=== PATIENT | female | born 1960 | race Caucasian/White ===

== ENCOUNTER 2020-01-16 06:23 | Day surgery (SDC) | payer BC ==
[~2020-01-16 06:23] MED LIST: CYCLOPENTOLATE 1% OPHTH DROPS 2 ML ONE; KETOROLAC 0.45% OPHTH DROPS ONE; PHENYLEPHRINE 2.5% OPHTH 2 ML DROPS ONE; PROPARACAINE 0.5% OPHTH DROPS 15 ML ONE
[2020-01-16] MEDS ORDERED: MIDAZOLAM 2 MG/2 ML VIAL IVP ONE (06:24)
[2020-01-16] MEDS ORDERED: fentaNYL 100 MCG/2 ML VIAL IVP ONE (06:24)
[2020-01-16] MEDS ORDERED: LACTATED RINGERS 500 ML IV ONE (06:37)
[2020-01-16] MEDS ORDERED: CYCLOPENTOLATE 1% OPHTH DROPS 2 ML LEFTEYE ONE (06:45)
[2020-01-16] MEDS ORDERED: KETOROLAC 0.45% OPHTH DROPS LEFTEYE ONE (06:45)
[2020-01-16] MEDS ORDERED: PHENYLEPHRINE 2.5% OPHTH 2 ML DROPS LEFTEYE ONE (06:45)
[2020-01-16] MEDS ORDERED: PROPARACAINE 0.5% OPHTH DROPS 15 ML LEFTEYE ONE ×2 (06:45→08:05)
--- NOTE | 2020-01-16 07:28 | ANESTHESIA ---
Pre-Anesthesia VS, & Labs - Diagnosis left senile combined cataract - Procedure left lazer assisted cataract extraction with intraocular lens implant Vital Signs: Temp Pulse Resp BP Pulse Ox 36.4 C L 89 16 140/98 H 96 01/16/20 06:38 01/16/20 06:38 01/16/20 06:38 01/16/20 06:38 01/16/20 06:38 Height 5 ft 5 in Weight (kg) 90.4 kg Body Mass Index 35.4 - NPO >8 hours - Is Patient ?: No - Lab Results Current Lab Results: Laboratory Tests 01/16/20 07:00: POC Whole Bld Glucose 128 H Home Medications and Allergies Fluoxetine HCl 40 mg PO BID 02/25/19 Losartan Potassium 50 mg PO DAILY 02/25/19 Metformin HCl 250 mg PO BID 02/25/19 Omeprazole 20 mg PO BID 02/25/19 SITagliptin [Januvia] 100 mg PO DAILY 02/25/19 hydroCHLOROthiazide [Hydrochlorothiazide] 50 mg PO BID 02/25/19 Allergies/Adverse Reactions: Allergies Allergy/AdvReac Type Severity Reaction Status Date / Time No Known Drug Allergies Allergy Verified 01/16/20 06:57 Anes History & Medical History - Anesthetic History Anesthesia Complications: reports: No previous complications - Medical History Cardiovascular: reports: Hypertension Pulmonary: reports: None Gastrointestinal: reports: GERD Urinary: reports: None Neuro: reports: None Musculoskeletal: reports: None Endocrine/Autoimmune: reports: Type 2 diabetes Blood Disorders: reports: None Skin: reports: None Smoking Status: Never smoker - Surgical History General: Cholecystectomy, Appendectomy Cardiothoracic: Other Exam General: Alert Dental: WNL Mouth Opening: Greater than 4 Fingerbreadths Mallampati classification: II Thyromental Distance: greater than 6 cm Respiratory: Lungs clear Cardiovascular: Regular rate, Normal S1, Normal S2 Plan Anesthesia Type: MAC Consent for Procedure(s) Verified and Reviewed: Yes Code Status: Attempt Resuscitation ASA classification: 2-Mild systemic disease Is this case an emergency?: No
[2020-01-16] MEDS ORDERED: BSS/LIDOCAINE/EPINEPHRINE 1 ML SYRINGE ONE (07:31)
[2020-01-16] MEDS ORDERED: TRIAMCIN/MOXIFLOX OPHTHALMIC 0.6 ML VIAL IO ONE ×2 (07:31→08:09)
[2020-01-16] MEDS ORDERED: timoloL maleate 0.5% OPHTH DROPS (10ML) ONE (07:31)
[2020-01-16] MEDS ORDERED: BRIMONIDINE 0.2% OPHTH DROPS 5 ML ONE (07:31)
[2020-01-16] MEDS ORDERED: VANCOMYCIN OPHTHALMI 8MG/0.8ML 8 MG/0.8 ML SYRINGE IO ONE ×2 (07:31→08:10)
[2020-01-16] MEDS ORDERED: BRIMONIDINE 0.2% OPHTH DROPS 5 ML OPTH ONE (08:08)
[2020-01-16] MEDS ORDERED: CHONDR SULF/HYALURONATE SYRINGE IO ONE (08:08)
[2020-01-16] MEDS ORDERED: EPINEPHrine 1 MG/ML AMP IVP ONE (08:08)
[2020-01-16] MEDS ORDERED: BSS/LIDOCAINE/EPINEPHRINE 1 ML SYRINGE IO ONE (08:09)
[2020-01-16] MEDS ORDERED: TIMOLOL 0.5% OPHTH DROPS OPTH ONE (08:09)
[2020-01-16 08:41] VITALS: BP 115/76
--- NOTE | 2020-01-16 09:23 | PROCEDURE REPORT ---
DATE OF SERVICE: 01/16/2020 Physician: Luke Quiles MD PREOPERATIVE DIAGNOSIS: Visually significant cataract left eye. This was her first cataract surgery. POSTOPERATIVE DIAGNOSIS: Visually significant cataract left eye. This was her first cataract surgery. DESCRIPTION OF PROCEDURE: Phacoemulsification with posterior chamber intraocular lens implant, left eye, with laser assist. SURGEON: uLke Quiles MD ANESTHESIA: Monitored anesthesia care. COMPLICATIONS: None. OPERATIVE INDICATIONS: This is a 59-year-old woman with progressive vision loss in the left eye due to 2+ nuclear sclerotic, 3+ posterior subcapsular, and vacuolar cataract. Best corrected visual acuity was 20/50 with glare to hand motion vision in the left eye. Indications for surgery are overall decrease in vision, difficulty seeing words on a computer screen, difficulty reading, difficulty seeing words, closed caption or game scores on TV, difficulty seeing street signs, difficulty driving in low light or at night, difficulty driving at night because headlights from other vehicles, and difficulty with glare or bright lights in any situation. She was consented at length concerning risks and benefits of cataract surgery, after which she expressed a desire to proceed with surgery. OPERATIVE PROCEDURE: The patient was taken to OR #3 and placed under monitored anesthesia care. A surgical timeout was conducted confirming correct patient, correct procedure, and correct surgical site. She was placed under the LenSx laser and her eye docked to the laser interface. The laser performed the capsulotomy, lens softening, phaco wounds and arcuate keratotomy incisions. She was then moved to the operating microscope, given topical anesthesia, and prepped and draped in the usual sterile fashion. The eye was entered at the 6 and 3 o'clock positions. Intracameral Shugarcaine was injected into the anterior chamber followed by Viscoat. The capsulorrhexis flap created by the LenSx laser was removed from the anterior chamber. The nucleus was hydrodissected and phacoemulsified. The cortex was evacuated using automated infusion and aspiration. Provisc was injected in the capsular bag and a 20.0 diopter intraocular lens inserted in the bag. Infusion and aspiration was used to evacuate the viscoelastic materials. The eye was inflated to physiologic pressure using balanced salt solution and found to be watertight. Approximately 0.25 mL of a mixture of triamcinolone, moxifloxacin was injected transsclerally into the vitreous in the inferotemporal quadrant. An additional 0.55 mL of a mixture of triamcinolone, moxifloxacin and vancomycin was injected subconjunctivally in the superior quadrant for infection and inflammation prophylaxis. Wound integrity was checked with Weck-Rosa sponges. Patient was taken from the operating room in good condition and given postoperative instructions. TD: 01/16/2020 08:37 MTDVaishnavi
== END 2020-01-16 06:24 | disposition home or self-care (01) ==
LOC: EEVIPCON 06:23 → SDS 06:23
PROVIDERS: ATTEND Ophthalmology
DX: E11.36 Type 2 diabetes mellitus with diabetic cataract (principal); H25.812 Combined forms of age-related cataract, left eye; I10 Essential (primary) hypertension; Z79.84 Long term (current) use of oral hypoglycemic drugs; Z90.2 Acquired absence of lung [part of]; Z79.899 Other long term (current) drug therapy
CPT/HCPCS: 66984; A9270; J3490; V2632

== ENCOUNTER 2020-06-16 11:02 | Outpatient (CLI) | payer BC ==
--- NOTE | 2020-06-17 09:14 | Ultrasound Report ---
LIMITED ULTRASOUND OF LEFT BREAST: 06/16/2020 CLINICAL: Patient returns for magnifcation views of microcalcifications in the left breast. Comparison is made to exams dated: 06/16/2020 mammogram, 02/02/2017 mammogram, and 06/03/2016 mammogram - [facility]. Real-time ultrasound of the left breast 1-2 o'clock region was performed. Amaral scale images of the real-time examination were reviewed. There are new suspicious clustered microcalcifications in the left breast, central to the nipple and in the 1:00 position. There is no sonographic correlate to the calcifications. No significant abnorma lities were seen sonographically in the left breast. IMPRESSION: SUSPICIOUS OF MALIGNANCY There is no sonographic correlate to the patient's mammographic abnormality. Stereotactic biopsy of the most concerning, largest group of calcifications, behind the nipple, is re commended. Depending on results of this biopsy, tissue sampling of the 1:00 group of calcifications v ersus short term follow up should be considered. Findings and recommendations were discussed with the patient by Dr. Jaden Tran at time of exam. This exam was interpreted at Station ID: [id number]. Electronically Signed By: Gail hobbs/:06/16/2020 18:28:35 Ultrasound BI-RADS: 4 Suspicious for malignancy BI-RADS CATEGORY: (4) - 4 None [id number] Immediate follow-up LATERALITY: ()
--- NOTE | 2020-06-17 09:14 | Ultrasound Report ---
LIMITED ULTRASOUND OF RIGHT BREAST: 06/16/2020 CLINICAL: Patient returns for additional imaging over a suspected mass in the right breast. Comparison is made to exams dated: 06/16/2020 mammogram, 02/02/2017 mammogram, and 06/03/2016 mammogram - [facility]. Color flow and real-time ultrasound of the right breast 4 o'clock region were performed. Amaral scale images of the real-time examination were reviewed. There is a stable, irregular cluster of cysts in the right breast at 4 o'clock middle depth. This cl uster of cysts displays no posterior acoustic shadowing or enhancement. These abnormalities are less prominent. Color flow imaging demonstrates that there is no vascularity present. IMPRESSION: BENIGN There is no sonographic evidence of malignancy in the right breast. The cluster of irregular cysts in the right breast is consistent with apocrine metaplasia or complica janay cysts, has been stable to decreased in prominence for 4 years, and therfore is benign. Findings and recommendations were conveyed to the patient at time of exam. This exam was interpreted at Station ID: [id number]. Electronically Signed By: Gail hobbs/:06/16/2020 18:36:46 Ultrasound BI-RADS: 2 Benign BI-RADS CATEGORY: (2) - 2 Unspecified - other recall n/a LATERALITY: (B)
--- NOTE | 2020-06-17 09:14 | Mammography Report ---
BILATERAL DIGITAL DIAGNOSTIC MAMMOGRAM 3D/2D: 06/16/2020 CLINICAL: Patient returns for magnifcation views of microcalcifications in the right breast. Comparison is made to exams dated: 02/02/2017 mammogram and 06/03/2016 mammogram - [facility]. There are scattered fibroglandular elements in both breasts. There are amorphous calcifications in the right breast at 4 o'clock middle depth. This is not signif icantly changed. There are new amorphous pleomorphic calcification in the left breast central to the nipple posterior depth. This is seen in additional views. There also are new grouped amorphous pleomorphic calcifications in the left breast at 1 o'clock middl e depth. No other significant masses or calcifications are seen in either breast. IMPRESSION: INCOMPLETE: NEEDS ADDITIONAL IMAGING EVALUATION The amorphous calcification in the right breast at 4 o'clock middle depth is indeterminate. An ultra sound is recommended. The new amorphous pleomorphic calcification in the left breast central to the nipple posterior depth is indeterminate. An ultrasound is recommended to evaluate for underlying mass. The new grouped amorphous pleomorphic calcifications in the left breast at 1 o'clock middle depth are indeterminate. An ultrasound is recommended. Ultrasound was performed immediately following this exam. This exam was interpreted at Station ID: [id number]. NOTE: For mammograms, a report in lay terms will be sent to the patient. Approximately 15% of breast malignancies will not be visualized mammographically. In the management of a palpable breast mass, a negative mammogram must not discourage biopsy of a clinically suspicious lesion. Electronically Signed By: Gail hobbs/:06/16/2020 13:57:56 ACR BI-RADS Category 0: Incomplete 3340F PARENCHYMAL PATTERN: (A) - The breast(s) demonstrate(s) scattered fibroglandular densities. BI-RADS CATEGORY: (0) - 0 Ultrasound [id number] Immediate follow-up LATERALITY: (B)
== END 2020-06-16 11:03 | disposition home or self-care (01) ==
LOC: DI 11:02
PROVIDERS: ATTEND Internal Medicine
DX: N60.11 Diffuse cystic mastopathy of right breast (principal); R92.0 Mammographic microcalcification found on diagnostic imaging of breast
CPT/HCPCS: 76642; 77066

== ENCOUNTER 2020-06-30 13:58 | Outpatient (CLI) | payer BC ==
[~2020-06-30 13:58] MED LIST changes: +BUFFERED LIDOCAINE 10 ML SYRINGE ONE; -CYCLOPENTOLATE 1% OPHTH DROPS 2 ML ONE; -KETOROLAC 0.45% OPHTH DROPS ONE; -PHENYLEPHRINE 2.5% OPHTH 2 ML DROPS ONE; -PROPARACAINE 0.5% OPHTH DROPS 15 ML ONE
[2020-06-30] MEDS ORDERED: BUFFERED LIDOCAINE 10 ML SYRINGE ONE (15:32)
[2020-06-30] MEDS ORDERED: BUFFERED LIDOCAINE 10 ML SYRINGE IU ONE (16:31)
--- NOTE | 2020-07-06 13:45 | Mammography Report ---
DIGITAL TOMOGRAPHIC MAMMOGRAPHY GUIDED STEREOTACTIC GUIDED BIOPSY LEFT BREAST WITH MARKING DEVICE INS ERTED AND POST MAMMOGRAPHIC IMAGIN06/30/2020 CLINICAL: Microcalcifications right breast. Correlation is made to exams dated: 06/16/2020 mammogram, 02/02/2017 mammogram, and 06/03/2016 mammogram - [facility]. A stereotactic guided biopsy was performed for the area of grouped calcifications located in the left breast central to the nipple posterior depth. This was described on the previous mammography report . The skin was prepped in the usual manner. Local anesthetic was administered to the access site. A skin mignon was made in the breast. The abnormality was approached from the lateral aspect using an upright digital tomographic mammography unit. A 12 gauge biopsy needle was placed adjacent to the ab normality under computer guidance and confirmatory stereotactic mammography images were obtained to d ocument needle placement. Once the needle was documented to be in the correct location, eleven speci mens were obtained using Siemens upright tomosynthesis biopsy unit. A clip was inserted into the bio psy cavity. A sterile dressing was applied to the access site. Post procedure mammographic imaging demonstrates the location device at the targeted area. The specimens were sent to the laboratory for pathological analysis. Two of eleven specimens have micro calcifications. IMPRESSION: STEREOTACTIC GUIDED BIOPSY BENIGN Stereotactic guided biopsy of the area of grouped calcifications in the left breast central to the ni pple posterior depth was successful. Pathology indicates benign fibroadenomatoid change and stromal fibrosis with prominent nodular calcifications present. Pathology results are concordant with imagin g findings. Recommend return to annual screening mammography. This exam was interpreted at Station ID: [id number]. Peter Bhat M.D. aty/:07/04/2020 09:03:16 BI-RADS CATEGORY: () - RECOMMENDATION: (ANNUAL) - Recommend routine annual screening mammography. [id number] return to screening LATERALITY: (B)
== END 2020-06-30 13:59 | disposition home or self-care (01) ==
LOC: DI 13:58
PROVIDERS: ATTEND Internal Medicine
DX: N60.32 Fibrosclerosis of left breast (principal)
CPT/HCPCS: 19081

== ENCOUNTER 2020-11-26 16:57 | Outpatient (CLI) | payer BC | END 2020-11-26 16:58 | disposition home or self-care (01) | LOC: COV 16:57 | PROVIDERS: ATTEND Ophthalmology | DX: Z01.812 Encounter for preprocedural laboratory examination (principal); H25.811 Combined forms of age-related cataract, right eye; E11.9 Type 2 diabetes mellitus without complications; Z20.828 Contact with and (suspected) exposure to other viral communicable diseases ==

== ENCOUNTER 2020-12-03 05:58 | Day surgery (SDC) | payer BC ==
[2020-12-03] MEDS ORDERED: PHENYLEPHRINE 2.5% OPHTH 2 ML DROPS ONE (06:22)
[2020-12-03] MEDS ORDERED: PROPARACAINE 0.5% OPHTH DROPS 15 ML ONE (06:22)
[2020-12-03] MEDS ORDERED: KETOROLAC 0.45% OPHTH DROPS ONE (06:23)
[2020-12-03] MEDS ORDERED: LACTATED RINGERS 500 ML IV ONE (06:45)
[2020-12-03 06:49] VITALS: BP 130/102
[2020-12-03] MEDS ORDERED: TRIAMCIN/MOXIFLOX OPHTHALMIC 0.6 ML VIAL IO ONE (06:57)
[2020-12-03] MEDS ORDERED: BSS/LIDOCAINE/EPINEPHRINE 1 ML SYRINGE ONE (06:58)
[2020-12-03] MEDS ORDERED: TIMOLOL 0.5% OPHTH DROPS ONE (06:58)
[2020-12-03] MEDS ORDERED: BRIMONIDINE 0.2% OPHTH DROPS 5 ML ONE (06:58)
[2020-12-03] MEDS ORDERED: EPINEPHrine 1 MG/ML AMP ONE (06:58)
[2020-12-03] MEDS ORDERED: VANCOMYCIN OPHTHALMI 8MG/0.8ML 8 MG/0.8 ML SYRINGE IO ONE (06:59)
--- NOTE | 2020-12-03 07:04 | ANESTHESIA ---
Pre-Anesthesia VS, & Labs - Diagnosis senile combined cataract - Procedure right cataract extraction with IOL Vital Signs: Temp Pulse Resp BP Pulse Ox 36.0 C L 106 H 16 130/102 H 97 12/03/20 06:15 12/03/20 06:15 12/03/20 06:15 12/03/20 06:15 12/03/20 06:15 Height: 5 ft 5 in Weight (kg): 89.3 kg Body Mass Index: 32.7 BMI Classification: Obese - NPO >8 hours - Is Patient ?: No - Lab Results Current Lab Results: Laboratory Tests 12/03/20 06:42: POC Whole Bld Glucose 174 H Home Medications and Allergies Fluoxetine HCl 40 mg PO BID 02/25/19 Losartan Potassium 50 mg PO DAILY 02/25/19 Metformin HCl 250 mg PO BID 02/25/19 Omeprazole 20 mg PO BID 02/25/19 SITagliptin [Januvia] 100 mg PO DAILY 02/25/19 hydroCHLOROthiazide [Hydrochlorothiazide] 50 mg PO BID 02/25/19 Allergies/Adverse Reactions: Allergies Allergy/AdvReac Type Severity Reaction Status Date / Time No Known Drug Allergies Allergy Verified 12/02/20 14:01 Anes History & Medical History - Anesthetic History Anesthesia Complications: reports: No previous complications - Medical History Cardiovascular: reports: Hypertension Pulmonary: reports: None Gastrointestinal: reports: GERD Urinary: reports: None Neuro: reports: None Musculoskeletal: reports: None Endocrine/Autoimmune: reports: Type 2 diabetes Blood Disorders: reports: None Skin: reports: None Smoking Status: Never smoker - Surgical History General: Cholecystectomy, Appendectomy Cardiothoracic: Other Exam General: Alert Dental: WNL Mouth Opening: Greater than 4 Fingerbreadths Neck Mobility: Normal Mallampati classification: II Respiratory: Lungs clear Cardiovascular: Regular rate Plan Anesthesia Type: MAC Consent for Procedure(s) Verified and Reviewed: Yes Code Status: Attempt Resuscitation ASA classification: 2-Mild systemic disease Is this case an emergency?: No
[2020-12-03] MEDS ORDERED: MIDAZOLAM 2 MG/2 ML VIAL ONE (07:10)
[2020-12-03] MEDS ORDERED: fentaNYL 100 MCG/2 ML VIAL ONE (07:21)
== END 2020-12-03 05:59 | disposition home or self-care (01) ==
LOC: SDS 05:58
PROVIDERS: ATTEND Ophthalmology
DX: E11.36 Type 2 diabetes mellitus with diabetic cataract (principal); H25.811 Combined forms of age-related cataract, right eye; Z53.8 Procedure and treatment not carried out for other reasons
CPT/HCPCS: A9270; J3490; J7120

== ENCOUNTER 2020-12-09 10:52 | Outpatient (CLI) | payer BC ==
[2020-12-09 16:03] LABS: C. PNEUMONIAE- RESP PCR PANEL NOT DETECTED
== END 2020-12-09 10:53 | disposition home or self-care (01) ==
LOC: LAB 10:52
PROVIDERS: ATTEND Ophthalmology
DX: Z01.812 Encounter for preprocedural laboratory examination (principal); H25.811 Combined forms of age-related cataract, right eye; E11.9 Type 2 diabetes mellitus without complications; Z20.822 Contact with and (suspected) exposure to COVID-19
CPT/HCPCS: 0202U

== ENCOUNTER 2020-12-10 07:24 | Day surgery (SDC) | payer BC ==
[~2020-12-10 07:24] MED LIST changes: +BRIMONIDINE 0.2% OPHTH DROPS 5 ML ONE; +BSS/LIDOCAINE/EPINEPHRINE 1 ML SYRINGE ONE; -BUFFERED LIDOCAINE 10 ML SYRINGE ONE; +EPINEPHrine 1 MG/ML AMP ONE; +KETOROLAC 0.45% OPHTH DROPS ONE; +MIDAZOLAM 2 MG/2 ML VIAL ONE; +PHENYLEPHRINE 2.5% OPHTH 2 ML DROPS ONE; +PROPARACAINE 0.5% OPHTH DROPS 15 ML ONE; +TIMOLOL 0.5% OPHTH DROPS ONE; +TRIAMCIN/MOXIFLOX OPHTHALMIC 0.6 ML VIAL IO ONE; +VANCOMYCIN OPHTHALMI 8MG/0.8ML 8 MG/0.8 ML SYRINGE IO ONE
[2020-12-10] MEDS ORDERED: LACTATED RINGERS 500 ML IV ONE ×2 (07:28→08:25)
--- NOTE | 2020-12-10 07:47 | CONSULTATION NOTE ---
Consultation Report: No health changes from 12/03/2020 pre-anesthesia evaluation. Case was delatyed d/t lens availability.
[2020-12-10] MEDS ORDERED: fentaNYL 100 MCG/2 ML VIAL ONE (07:53)
[2020-12-10] MEDS ORDERED: BRIMONIDINE 0.2% OPHTH DROPS 5 ML OPTH ONE (08:09)
[2020-12-10] MEDS ORDERED: TIMOLOL 0.5% OPHTH DROPS OPTH ONE (08:10)
[2020-12-10] MEDS ORDERED: CHONDR SULF/HYALURONATE SYRINGE IO ONE (08:10)
[2020-12-10] MEDS ORDERED: EPINEPHrine 1 MG/ML AMP IR ONE (08:10)
[2020-12-10] MEDS ORDERED: BSS/LIDOCAINE/EPINEPHRINE 1 ML SYRINGE IO ONE (08:10)
[2020-12-10] MEDS ORDERED: TRIAMCIN/MOXIFLOX OPHTHALMIC 0.6 ML VIAL IO ONE (08:11)
[2020-12-10] MEDS ORDERED: VANCOMYCIN OPHTHALMI 8MG/0.8ML 8 MG/0.8 ML SYRINGE IO ONE (08:11)
[2020-12-10] MEDS ORDERED: PROPARACAINE 0.5% OPHTH DROPS 15 ML EACHEYE ONE (08:11)
[2020-12-10 08:26] VITALS: BP 125/88
--- NOTE | 2020-12-10 09:24 | ANESTHESIA POST OP EVALUATION ---
Anesthesia Post Eval - Post Anesthesia Eval Vitals: Last Vital Signs Temp 36.4 C L 12/10/20 08:25 Pulse 88 12/10/20 08:25 Resp 16 12/10/20 08:25 BP 125/88 H 12/10/20 08:25 Pulse Ox 96 12/10/20 08:25 CV Function Including HR & BP: positive: Stable Pain Control: positive: Satisfactory Nausea & Vomiting: positive: Negative Mental Status: positive: Baseline Respiratory Status: Airway Patent Hydration Status: Satisfactory Anesthesia Complications: positive: None
--- NOTE | 2020-12-10 10:18 | OPERATIVE REPORT ---
DATE OF SERVICE: 12/10/2020 Physician: Luke Quiles MD PREOPERATIVE DIAGNOSIS: Visually significant cataract, right eye. Cataract surgery was performed on the left eye on [id number]. POSTOPERATIVE DIAGNOSIS: Visually significant cataract, right eye. Cataract surgery was performed on the left eye on [id number]. PROCEDURE: Phacoemulsification with posterior chamber intraocular lens implant, right eye. SURGEON: Luke Quiles MD ANESTHESIA: Monitored anesthesia care. COMPLICATIONS: None. OPERATIVE INDICATIONS: This is a 59-year-old woman with progressive vision loss in the right eye due to 3-4+ nuclear sclerotic, 3+ posterior subcapsular and vacuolar cataract. Best corrected visual acuity was 20/70, with glare to hand motion vision in the left eye. Indications for surgery were overall decrease in vision, difficulty seeing words on a computer screen, difficulty reading, difficulty seeing words, closed captions, or game scores on TV, difficulty seeing street signs, difficulty driving in low light or at night, difficulty driving at night because of headlights from other vehicles, and difficulty with glare or bright lights in any situation. She was consented at length concerning risks and benefits of cataract surgery, after which she expressed a desire to proceed with surgery. OPERATIVE PROCEDURE: The patient was taken to OR #3 and placed under monitored anesthesia care. A surgical timeout was conducted, confirming correct patient, correct procedure, and correct surgical site. She was given topical anesthesia, and prepped and draped in the usual sterile fashion. The eye was entered at the 12 and 9 o'clock positions. Intracameral Shugarcaine was injected into the anterior chamber, followed by Viscoat. A continuous-tear curvilinear capsulorrhexis was performed. The nucleus was hydrodissected and phacoemulsified. The cortex was evacuated using automated infusion and aspiration. Provisc was injected in the capsular bag and a 19.5 diopter toric intraocular lens was inserted into the bag and rotated to axis 083 that had been previously marked on the cornea in the PACU. Infusion and aspiration was used to evacuate the viscoelastic materials. The eye was inflated to physiologic pressure using balanced salt solution and found to be watertight. The axis was verified to still be at axis 083. Approximately 0.25 mL of a mixture of triamcinolone and moxifloxacin was injected transsclerally into the interval inferotemporal quadrant. An additional 0.55 mL of a mixture of triamcinolone, moxifloxacin, and vancomycin was injected subconjunctivally in the superior quadrant for infection and inflammation prophylaxis. Wound integrity was checked with Weck-Rosa sponges. The axis of the lens was once again verified to be at axis 083 as marked on the cornea. The patient was taken from the operating room in good condition and given postoperative instructions. TD: 12/10/2020 08:39 [facility]
== END 2020-12-10 07:25 | disposition home or self-care (01) ==
LOC: SDS 07:24
PROVIDERS: ATTEND Ophthalmology
DX: E11.36 Type 2 diabetes mellitus with diabetic cataract (principal); H25.811 Combined forms of age-related cataract, right eye; Z79.84 Long term (current) use of oral hypoglycemic drugs; I10 Essential (primary) hypertension; Z98.42 Cataract extraction status, left eye; E66.9 Obesity, unspecified; Z68.32 Body mass index [BMI] 32.0-32.9, adult; K21.9 Gastro-esophageal reflux disease without esophagitis
CPT/HCPCS: 66984; A9270; J3490; J7120; V2632

== ENCOUNTER 2021-03-08 09:28 | Outpatient (CLI) | payer BC ==
[2021-03-08 09:42] LABS: BASOPHILS # (AUTO) 0.1 10^3/uL (0.0-0.1); BASOPHILS % (AUTO) 0.8 %; EOSINOPHILS # (AUTO) 0.2 10^3/uL (0.0-0.7); EOSINOPHILS % (AUTO) 1.7 %; HGB - HEMOGLOBIN 14.5 g/dL (12.0-16.0); LYMPHOCYTES % (AUTO) 20.4 %; MEAN CORPUSCULAR HGB CONC 34.5 g/dL (32.0-36.0); MEAN PLATELET VOLUME 11.6 fL (7.9-10.8); MONOCYTES # (AUTO) 0.6 10^3/uL (0.0-1.0); NEUTROPHILS # (AUTO) 6.8 10^3/uL (1.5-6.6); NEUTROPHILS % (AUTO) 70.7 %; PLT - PLATELET COUNT 211 10^3/uL (130-450); RED BLOOD COUNT 4.83 10^6/uL (4.20-5.40); RED CELL DISTRIBUTION WIDTH 12.7 % (12.0-15.0); WHITE BLOOD COUNT 9.6 x10^3/uL (4.8-10.8)
[2021-03-08 09:58] LABS: ALBUMIN 4.6 g/dL (3.2-5.5); ALBUMIN/GLOBULIN RATIO 1.4 (1.0-2.2); ALKALINE PHOSPHATASE 78 IU/L (42-121); ALT ALANINE AMINOTRANSFERASE 75 IU/L (10-60); AST ASPARTATE AMINOTRANSFERASE 67 IU/L (10-42); BILIRUBIN,TOTAL 0.9 mg/dL (0.2-1.0); BUN - BLOOD UREA NITROGEN 14 mg/dL (6-20); CALCIUM 9.9 mg/dL (8.5-10.3); CARBON DIOXIDE - CO2 28 mmol/L (21-32); CHLORIDE 93 mmol/L (101-111); CHOL/HDL RATIO 5.4 (<4.4); CHOLESTEROL 222 mg/dL; CREATININE 0.8 mg/dL (0.4-1.0); GFR - MDRD 73 (>89); GLUCOSE 243 mg/dL (70-100); HDL CHOLESTEROL 41 mg/dL; LDL CHOLESTEROL,CALCULATED 127 mg/dL; LDL/HDL RATIO 3.1 (<4.4); POTASSIUM 3.2 mmol/L (3.5-5.0); SODIUM 134 mmol/L (135-145); TOTAL PROTEIN 7.9 g/dL (6.7-8.2); TRIGLYCERIDES 271 mg/dL; VLDL CHOLESTEROL 54 mg/dL
[2021-03-08 10:05] LABS: CREATININE,URINE 193.9 mg/dL; MICROALBUM/CREATININE RATIO,UR 41.8 ug/mg (<30.0); MICROALBUMIN,URINE 8.1 mg/dL (0-300.0)
[2021-03-08 11:51] LABS: ESTIMATED AVERAGE GLUCOSE 229 mg/dL (70-100); HEMOGLOBIN A1c% 9.6 % (4.27-6.07)
[2021-03-09 13:16] LABS: HEPATITIS C ANTIBODY NON-REACTIVE (NON-REACTIVE)
== END 2021-03-08 09:29 | disposition home or self-care (01) ==
LOC: LAB 09:28
PROVIDERS: ATTEND Internal Medicine
DX: I10 Essential (primary) hypertension (principal); Z13.6 Encounter for screening for cardiovascular disorders; Z11.59 Encounter for screening for other viral diseases; E11.9 Type 2 diabetes mellitus without complications; K21.9 Gastro-esophageal reflux disease without esophagitis
CPT/HCPCS: 36415; 80053; 80061; 82043; 82570; 83036; 83721; 84443; 85025; 86803

== ENCOUNTER 2021-09-02 14:47 | Outpatient (CLI) | payer BC ==
--- NOTE | 2021-09-02 17:11 | MRI Report ---
PROCEDURE: Cervical Spine W/O INDICATIONS: CERVICAL RADICULOPATHY, PARESTHESIA/PAIN RT EXTREM TECHNIQUE: Noncontrast sagittal T1 spin echo and T2 fast spin echo, sagittal STIR, foraminal oblique sagittal T2 fast spin echo, and axial gradient echo or T2 fast spin echo through the cervical spine. COMPARISON: None. FINDINGS: Image quality: Motion artifact is noted. Alignment and Curvature: There is minimal retrolisthesis seen at the C5-C6 level. Bone Marrow: Marrow demonstrates normal overall signal. Spinal Cord: Visualized spinal cord has normal size and signal. No cerebellar tonsillar herniation. Paraspinous Soft Tissues: No paravertebral masses. Prevertebral soft tissues are normal in thicknes s. C2-C3: No significant abnormality is seen. C3-C4: The disc height is well-preserved. There is loss of disc signal seen. Mild disc osteophyte complex is seen. Mild facet hypertrophy is seen. Mild bilateral neural foraminal narrowing is see n. Mild central canal narrowing is seen. C4-C5: The disc height is well-preserved. There is loss of disc signal seen. Mild to moderate disc osteophyte complex is seen, which is eccentric to the right. There is mild to moderate right-sided a nd mild left-sided facet hypertrophy seen. There is moderate to severe bilateral neuroforaminal narro wing seen. Mild central canal narrowing is seen. C5-C6: Moderate loss of disc height and signal are seen. Moderate disc osteophyte complex is seen, which is eccentric to the right. There is a central/right disc osteophyte protrusion, which continue s into the right foraminal region. Uncovertebral joint hypertrophy is seen at this level. Moderate to severe bilateral neuroforaminal narrowing can be seen. Moderate to severe central canal narrowing is also seen. Associated mass effect is seen upon the ventral spinal cord. C6-C7: Moderate loss of disc height and signal are seen. Moderate disc osteophyte complex is seen, w ith a central disc osteophyte protrusion. Mild facet hypertrophy is seen. Moderate to severe bilate ral neuroforaminal narrowing can be seen. Moderate to severe central canal narrowing is seen, with as sociated mass effect upon the ventral spinal cord. C7-T1: Moderate loss of disc height and signal are seen. Moderate disc osteophyte complex is seen, w ith a central/left disc osteophyte protrusion. Mild facet hypertrophy is seen. There is moderate le ft sided and [id number] right-sided neuroforaminal narrowing seen. Moderate central canal narr owing is seen. IMPRESSION: Focal lower cervical spine degenerative changes are seen, which are overall worst at the C6-C7 level. Reviewed by: Slava Castellano MD on 09/02/2021 4:10 PM [facility] Approved by: Slava Castellano MD on 09/02/2021 4:10 PM [facility] Station ID: [id number]
== END 2021-09-02 14:48 | disposition home or self-care (01) ==
LOC: DI 14:47
PROVIDERS: ATTEND Physical Medicine & Rehabilitation
DX: M47.812 Spondylosis without myelopathy or radiculopathy, cervical region (principal); M50.11 Cervical disc disorder with radiculopathy, high cervical region; M48.02 Spinal stenosis, cervical region; R20.2 Paresthesia of skin; M47.23 Other spondylosis with radiculopathy, cervicothoracic region; M48.03 Spinal stenosis, cervicothoracic region; R22.31 Localized swelling, mass and lump, right upper limb; R20.0 Anesthesia of skin

== ENCOUNTER 2021-09-02 14:49 | Outpatient (CLI) | payer BC ==
--- NOTE | 2021-09-03 08:31 | Ultrasound Report ---
PROCEDURE: Ext Limited Non Vascular INDICATIONS: MASS ON HAND TECHNIQUE: Real-time scanning was performed of the right hand, with image documentation. COMPARISON: None. FINDINGS: Focused ultrasound examination over volar aspect of right hand shows at least 4 oval heterogeneously hypoechoic to isoechoic and solid-appearing structures scattered at the level of CMC joints measures 1 x 0.4 x 0.7 cm, 0.4 x 0.4 x 0.4 cm, 0.6 x 0.3 x 0.6 cm, and 0.4 x 0.3 cm in size. No definite inter nal vascularity is seen. No discrete drainable fluid collection. IMPRESSION: Subcentimeter solid-appearing nodule is seen in lateral aspect of right hand predominantly over the r egion of CMC joints and measures up to 1 cm in size as described above. No definite internal vascular ity is seen. Finding may represent benign process such as soft tissue fibroma. Excision of one of the nodules can be done for more definitive diagnosis if clinically indicated. This can also be further evaluated with MRI of the hand without and with contrast. Reviewed by: Gary Moreno MD on 09/03/2021 8:29 AM PDT Approved by: Gary Moreno MD on 09/03/2021 8:29 AM PDT Station ID: [id number]
== END 2021-09-02 14:50 | disposition home or self-care (01) ==
LOC: DI 14:49
PROVIDERS: ATTEND Specialist
DX: R22.31 Localized swelling, mass and lump, right upper limb (principal); R20.0 Anesthesia of skin

== ENCOUNTER 2022-02-02 10:37 | Outpatient (CLI) | payer BC ==
--- NOTE | 2022-02-02 13:54 | XRAY Report ---
PROCEDURE: Chest 1 View X-Ray INDICATIONS: + TB TEST TECHNIQUE: One view of the chest was acquired. COMPARISON: None FINDINGS: Surgical changes and devices: None. Lungs and pleura: No pleural effusions or pneumothorax. Lungs are clear. Mediastinum: Mediastinal contours appear normal. Heart size is normal. Bones and chest wall: No suspicious bony lesions. Overlying soft tissues appear unremarkable. IMPRESSION: No acute cardiopulmonary findings. Reviewed by: Sandra Antonio MD on 02/02/2022 1:52 PM [facility] Approved by: Sandra Antonio MD on 02/02/2022 1:52 PM [facility] Station ID: [id number]
== END 2022-02-02 10:38 | disposition home or self-care (01) ==
LOC: DI 10:37
PROVIDERS: ATTEND Internal Medicine
DX: R76.11 Nonspecific reaction to tuberculin skin test without active tuberculosis (principal)

== ENCOUNTER 2022-02-07 14:09 | Outpatient (CLI) | payer BC ==
[2022-02-07 14:46] LABS: ESTIMATED AVERAGE GLUCOSE 163 mg/dL (70-100); HEMOGLOBIN A1c% 7.3 % (4.27-6.07)
[2022-02-07 14:50] LABS: CALCIUM 9.8 mg/dL (8.5-10.3); CREATININE 0.8 mg/dL (0.4-1.0); POTASSIUM 3.1 mmol/L (3.5-5.0)
== END 2022-02-07 14:10 | disposition home or self-care (01) ==
LOC: LAB 14:09
PROVIDERS: ATTEND Internal Medicine
DX: E11.9 Type 2 diabetes mellitus without complications (principal); Z79.899 Other long term (current) drug therapy
CPT/HCPCS: 36415; 80048; 82607; 83036